=== PATIENT | female | born 1950 | race Caucasian/White ===

== ENCOUNTER 2024-11-29 13:01 | Emergency (ER) | payer MEDICARE, OTHER ==
[~2024-11-29] VITALS: Ht 157.4 cm; Wt 78.0 kg
[2024-11-29] MEDS ORDERED: KETOROLAC TROMET3 ML OP (13:05)
[2024-11-29] MEDS ORDERED: PRED FORTE5 ML OP (13:06)
[2024-11-29] MEDS ORDERED: SOLIFENACIN SUCC5 MG PO (13:07)
[2024-11-29] MEDS ORDERED: PANTOPRAZOLE SO40 MG PO (13:07)
[2024-11-29] MEDS ORDERED: OCUFLOX 0.3% 5 M5 ML OPH (13:09)
[2024-11-29] MEDS ORDERED: LOSARTAN POTASS25 M1 PO (13:10)
[2024-11-29] MEDS ORDERED: GOOD SENSE ASPI81 M1 PO (13:14)
[2024-11-29 13:41] LABS: BASO # 0.1 10*3/uL (0.0-0.1); BASO % 0.7 % (0.0-1.0); EOS # 0.3 10*3/uL (0.0-0.4); EOS % 4.2 % (1.0-4.0); HEMATOCRIT 36.2 % (37.0-47.0); MEAN CELL VOLUME 94.5 fl (81.0-99.0); MEAN CORPUSCULAR HGB 30.5 pg (27.0-31.0); MEAN CORPUSCULAR HGB CONC 32.3 g/dl (33.0-37.0); MEAN PLATELET VOLUME 9.6 fl (9.6-12.3); MONO # 0.7 10*3/uL (0.1-1.0); MONO % 9.4 % (3.0-9.0); NEUT # 3.8 10*3/uL (2.3-7.9); NEUT % 53.3 % (47.0-73.0); PLATELET COUNT AUTOMATED 248 10*3/uL (130-400); RED BLOOD COUNT 3.83 10*6/uL (4.10-5.10); RED CELL DISTRI WIDTH 14.1 % (0-14.5); WHITE BLOOD COUNT 7.2 10*3/uL (4.8-10.8)
[2024-11-29 13:59] LABS: BUN 20 mg/dl (9-23); CHLORIDE 106 mmol/L (98-107)
[2024-11-29] MEDS ORDERED: predniSONE 20 MG TAB PO ONE (14:25)
[2024-11-29] MEDS ORDERED: PREDNISONE50 MG PO (14:26)
== END 2024-11-29 14:35 | disposition home or self-care (01) ==
LOC: ED 13:01
PROVIDERS: Nurse Practitioner Family
DX: M25.472 Effusion, left ankle (principal); M79.605 Pain in left leg; I10 Essential (primary) hypertension; Z79.82 Long term (current) use of aspirin; Z79.899 Other long term (current) drug therapy; Z88.2 Allergy status to sulfonamides; Z88.8 Allergy status to other drugs, medicaments and biological substances

== ENCOUNTER → 2025-04-07 | Outpatient (CLI) | payer MEDICARE, OTHER ==
[~2025-04-07] MED LIST: CO Q-10200 MG PO; FLUTICASONE PR50 MCG INH; GOOD SENSE ASPI81 M1 PO; HYDROCHLOROTH12.5 M2 PO; KETOROLAC TROMET3 ML OP; LOSARTAN POTASS25 M1 PO; OCUFLOX 0.3% 5 M5 ML OPH; PANTOPRAZOLE SO40 MG PO; PRED FORTE5 ML OP; PREDNISONE50 MG PO; Regadenoson 0.4 MG/5 ML SYR IV ONE; SOLIFENACIN SUCC5 MG PO; Technetium Tc 99M Tetrofosmi 0.23 MG KIT IJ SCH
== END | disposition home or self-care (01) ==
LOC: CARD 00:29
PROVIDERS: ATTEND Nurse Practitioner Family
DX: R06.00 Dyspnea, unspecified (principal); R07.9 Chest pain, unspecified; I10 Essential (primary) hypertension; R42 Dizziness and giddiness; R00.2 Palpitations; E66.9 Obesity, unspecified